=== PATIENT | male | born 1965 | race Caucasian/White ===

== ENCOUNTER 2020-10-01 12:16 | Emergency (ER) | payer BC, SELFPAY ==
[2020-10-01 12:27] VITALS: BP 134/89; PULSE 84; RESP 20; TEMP 37; O2SAT 99
--- NOTE | 2020-10-01 12:29 | ED.BACK ---
HPI - Back Pain/Injury General Chief Complaint: Back Pain/Injury Stated Complaint: back/leg pain Time Seen by Provider: 10/01/20 12:29 Source: patient and RN notes reviewed History of Present Illness HPI Narrative: Patient is a 55-year-old male who presents the urgent care with complaints of left-sided low back pain radiating down to the left leg. Patient states that its been on and off for approximately 1 month and extremely worse yesterday and today. Patient states he does have a history of back surgery with diffuse disc. Reports of chronic back pain intermittently. Denies of any recent trauma, fall, known injury. Patient has been taking ibuprofen as needed for pain. No other acute complaints. No acute distress noted. Patient aware of the plan of care. Some parts of this dictation were generated by voice recognition software and may contain typographical and/or grammatical inaccuracies. Related Data Allergies Allergy/AdvReac Type Severity Reaction Status Date / Time No Known Allergies Allergy Verified 10/01/20 12:32 Review of Systems Review of Systems: Narrative: CONSTITUTIONAL: Denies fever, chills, or sweats. EYES: Denies visual changes, redness, or discharge. ENT: Denies rhinorrhea, congestion, sore throat, or otalgia. CARDIOVASCULAR: Denies chest pain, palpitations, or edema. RESPIRATORY: Denies cough or dyspnea. GASTROINTESTINAL: Denies abdominal pain, nausea, vomiting, or diarrhea. GENITOURINARY: Denies dysuria or hematuria. SKIN: Denies rash or itching. MUSCULOSKELETAL: Reports of left-sided low back pain radiating down the left leg NEUROLOGIC: Denies headache, numbness, or weakness. All other systems reviewed are negative, except as documented in HPI. PMFSH Comments At the time of my signature, I reviewed and agree with the nursing past medical, surgical, social, and family history. There is no relevant family history pertinent to the patient complaint. Exam Narrative: Exam Narrative: GENERAL: This is a well-nourished, well-developed patient, in no apparent distress. HEAD: normocephalic, atraumatic. EYES: PERRL. Sclera clear/white. Vision is grossly intact. EARS: External ears normal NOSE: External nose normal with no obvious nasal discharge, nares without redness, no rhinorrhea. THROAT: Mucous membranes moist NECK: Neck supple SKIN: warm, intact with no suspicious lesions or rash, good texture and turgor. NEURO: awake, alert, and oriented to person, place and time. There were no obvious focal neurologic abnormalities. EXTREMITIES: No clubbing, cyanosis, or edema. No joint tenderness, effusion, or edema noted. BACK: Moderate left-sided lumbar tenderness. Left-sided piriformis tenderness. Positive left SLE Course Vital Signs Vital signs: Vital Signs Temperature 98.6 F 10/01/20 12:27 Pulse Rate 84 10/01/20 12:27 Respiratory Rate 20 10/01/20 12:27 Blood Pressure 134/89 10/01/20 12:27 Pulse Oximetry 99 10/01/20 12:27 Temperature 98.6 F 10/01/20 12:27 Pulse Rate 84 10/01/20 12:27 Respiratory Rate 20 10/01/20 12:27 Blood Pressure 134/89 10/01/20 12:27 Pulse Oximetry 99 10/01/20 12:27 Reviewed MDM - Back Pain/Injury MDM Narrative Medical decision making narrative: Advised the patient to complete the steroid regimen as prescribed. Use ibuprofen as needed for pain. Avoid long periods of sitting. Avoid any strenuous activity or heavy lifting above the head or bending at the waist. Use the Flexeril as needed for muscle relaxer only at bedtime. Do not drive or operate heavy machinery while using the Flexeril. 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 If you develop any increase in pain associated with loss of bowel or bladder or inability to move the left leg?go to the emergency room. Follow-up with your PCP within 2 to 5 days or for worsening symptoms or failure to improve. [place]
== END 2020-10-01 12:42 | disposition home or self-care (01) ==
PROVIDERS: Emergency Provider Nurse Practitioner Family
DX: M54.32 Sciatica, left side (principal)
CPT/HCPCS: 99203; G0463

== ENCOUNTER 2022-06-04 02:21 | Outpatient (CLI) | payer MEDICAID, SELFPAY ==
[2022-05-26 16:01] VITALS: BMI 38.6
--- NOTE | 2022-05-26 16:01 | PC.NURSE ---
Pre Radiology instructions Report to the Outpatient Waiting Room, entrance under the green pavilion located off [facility], at time 0630 on date 06/04/22. Procedure Time: 0830. YOU MAY BE MONITORED AT HOSPITAL FOR UP TO 4 HOURS AFTER YOUR PROCEDURE. One visitor will be allowed to accompany the patient into the hospital. The visitor will be instructed to remain with patient at all times or MAY BE ASKED TO leave the building due to restrictions. We will allow the visitor to come back to the postoperative area when patient is ready. NO children visitors allowed at this time. You and your visitor will be asked to self-screen and do not enter if you have any COVID symptoms. A mask is OPTIONAL within the hospital. Patients are to have no food or drink 6 hours prior to procedure time Driving will be restricted after the procedure, you must have a person to drive you home. Labs will be drawn in preop area and once reviewed, you will be taken to radiology area for procedure. When the procedure is completed, you will be taken to outpatient where you will be monitored for several hours. You may have one visitor in this area. Other than holding anti-coagulants, patient may take other medication(s) as scheduled. Prior to your appointment date patients are instructed to hold anti-coagulants after discussing with ordering provider to stop. If unable to discontinue anti-coagulants please notify radiologist. No aspirin or warfarin (Coumadin) for 7 days prior to the procedure. No clopidogrel (Plavix), ticagrelor (Brilinta), prasugrel (Effient) or dabigatran (Pradaxa) for 5 days prior to the procedure. No rivaroxaban (Xarelto), apixaban (Eliquis), dipyridamole (Aggrenox or Persantine) or cilostazol (Pletal) for 2 days prior to the procedure. Medications to discontinue per physician: ASPIRIN, XARELTO Date to take last dose: 05/27, 06/01 Please leave all valuables, including medications, at home the day of procedure. The hospital will not accept responsibility for valuables. Wear comfortable, loose fitting clothing. Follow any additional instructions given to you from ordering provider. Telephone instructions given to STACEY CERVANTES and asked if any additional questions and then verbalized understanding. Patient advised to call scheduling provider office or registration scheduling [phone] if any additional questions.
[2022-06-04] VITALS (9 sets, daily range): BP systolic 114–149; BP diastolic 67–112; PULSE 67–94; RESP 16–18; TEMP 36.9; O2SAT 94–97
--- NOTE | ~2022-06-04 | XR_ITS ---
EXAMINATION: 1. CT lumbar spine w con 2. XR myelogram spine lumbosacral DATE: 06/04/2022 08:33 INDICATION: Back pain. TECHNIQUE: The procedure including the risks, benefits, and alternatives was discussed with the patie nt. Risks discussed included spinal headache, bleeding, and infection. The patient understood the ris ks and agreed to proceed. A timeout was performed to verify the patient's name, date of , and procedure to be performed. The skin overlying the L3-L4 level was prepped and draped in usual steri le fashion. Subcutaneous 1% lidocaine was used for local anesthesia. A 22 gauge spinal needle was a dvanced under fluoroscopic guidance. 17 mL Omnipaque 180 was injected into the thecal sac. The needle was removed and the entry site was cleaned and dressed. There were no immediate complications. Fluo roscopy exposure time was 1.0 minutes. The total number of images was 14. Computed tomography (CT) of the lumbar spine was performed without intravenous contrast. Automated exposure control and iterativ e reconstruction technique were employed. The dose-length product was 1438.99 mGy-cm. COMPARISON: lumbar spine MRI 07/09/21 FINDINGS: LUMBAR MYELOGRAM: There are 12 pairs of ribs. There are 5 nonrib-bearing lumbar segments. Real-time f luoroscopy demonstrates the needle at the L3-L4 level. There is indentation of the thecal sac at mult iple levels, which will be further described on the post myelogram CT . POST MYELOGRAM LUMBAR SPINE CT: There is 6 degrees dextrocurvature of lumbar spine. There is 3 mm ret rolisthesis of L1 on L2 and L2 on L3 and 2 mm anterolisthesis of L4 on L5. There is mild chronic ante rior wedging of T11 and T12 vertebral bodies. There is a chronic right L3 pars defect. There is resec tion of a portion of the L3 spinous process. There is moderately decreased disc height at T11-T12, mi ldly decreased disc height at T12-L1, L1-L2, and L2-L3, and moderately decreased disc height at L3-L4 with endplate remodeling. The conus medullaris is at T12-L1. The following disc levels are specifica lly discussed: T11-T12: The disc is bulging. There is moderate right facet joint osteoarthritis. There is moderate r ight neural foraminal stenosis. There is mild central canal stenosis. T12-L1: The disc does not extend beyond the endplate margin. There is severe bilateral facet joint os teoarthritis. There is no neural foraminal stenosis. There is no central canal stenosis. L1-L2: The disc does not extend beyond the endplate margin. There is severe bilateral facet joint ost eoarthritis. There is mild right and moderate left neural foraminal stenosis. There is no central can al stenosis. L2-L3: The disc is bulging. There is severe right and moderate left facet joint osteoarthritis. There is mild bilateral neural foraminal stenosis. There is mild central canal stenosis. L3-L4: The disc is bulging. There is severe bilateral facet joint osteoarthritis. There is mild right and moderate left neural foraminal stenosis. There is mild central canal stenosis with posterior dec ompression. There is moderate stenosis of right lateral recess. L4-L5: The disc is bulging. There is severe right and moderate left facet joint osteoarthritis. There is mild bilateral neural foraminal stenosis. There is epidural lipomatosis. There is mild central ca nal stenosis. L5-S1: The disc does not extend beyond the endplate margin. There is severe bilateral facet joint ost eoarthritis. There is no neural foraminal stenosis. There is epidural lipomatosis. There is no centra l canal stenosis. IMPRESSION: 1. Moderate lumbar spondylosis, stable from 07/09/2021. Reviewed, dictated and finalized at location A. NING PROGRAM MANAGER IMPRESSION: 1. Moderate lumbar spondylosis, stable from 1
[2022-06-04 07:27] LABS: Mean Platelet Volume 11.6 fl (7.4-10.4); Platelet Count Result 265 k/mm3 (150-375)
[2022-06-04 07:37] LABS: Prothrombin Time 12.6 Seconds (11.1-14.7)
[2022-06-04] MEDS: ACETAMINOPHEN 500 MG TABLET PO (09:41)
== END 2022-06-04 10:30 | disposition home or self-care (01) ==
PROVIDERS: PCP Physician Assistant; Referring Provider Neurological Surgery; Visit Provider Radiology Diagnostic Radiology
DX: M47.896 Other spondylosis, lumbar region (principal)
CPT/HCPCS: 36415; 62304; 72132; 85049; 85610; A9270; Q9965

== ENCOUNTER 2022-06-28 09:04 | Outpatient (CLI) | payer OTHER, SELFPAY ==
--- NOTE | 2022-06-28 11:00 | NEURO_ITS ---
Impression: # Complains of lower back pain and pain in left lower extremity. Status post lower back surgery. # Normal nerve conduction study including F-waves. # Normal needle/EMG exam, no denervation changes noted. Motor Nerve Conduction Lower Extremities Peroneal Nerve Conduction Velocity (m/sec) Terminal Latency (msec) Response Voltage(mV) Popliteal space-Ankle Ankle Extensor Dig Brevis Popliteal space Ankle Right Left 48 5.9 2 1 Tibial Nerve Conduction Velocity (m/sec) Terminal Latency (msec) Response Voltage(mV) Popliteal space-Ankle Ankle-Extensor Dig Brevis Popliteal space Ankle Right Left 42 4.8 2 1 F-waves Peroneal Nerve (ms) Tibial Nerve (ms) Right Left 56.9 57.6 Sensory Nerve Conduction Lower Extremities Sural Nerve Stimulation Terminal Latency (msec) Ankle Response Voltage (uV) Ankle Response Velocity (m/sec) Right Left 3.5 17 44 Superficial Peroneal Nerve Stimulation Terminal Latency (msec) Ankle Response Voltage (uV) Ankle Response Velocity (m/sec) Right Left 3.8 17 42 Left Right Muscles Examined Fibrillation Fasciculation Scarcity Voltage Duration Left Right Left Right Left Right Left Right Left Right X Ant Tibialis X Gastroc X Fibularis Long X Flex Dig Long X Ext Dig Brev Abd Hallucis Quadriceps Paraspinals MTDD
== END 2022-06-28 09:05 | disposition home or self-care (01) ==
LOC: ANHNEURO 09:06
PROVIDERS: PCP Physician Assistant; Visit Provider Neurological Surgery
DX: R20.2 Paresthesia of skin (principal)
CPT/HCPCS: 95886; 95908

== ENCOUNTER 2022-09-07 08:58 | Outpatient (CLI) | payer OTHER, SELFPAY ==
--- NOTE | 2022-09-07 09:15 | ECG_ITS ---
Measurements Intervals [place] Rate: 93 P: 11 DE: 153 QRS: 36 QRSD: 84 T: 61 QT: 322 QTc: 401 Interpretive Statements SINUS RHYTHM BORDERLINE R WAVE PROGRESSION, ANTERIOR LEADS BORDERLINE ECG NO PREVIOUS ECG AVAILABLE FOR COMPARISON Electronically Signed On 09-07-2022 9:34:45 CDT by [place] Dai D.O.
== END 2022-09-07 08:59 | disposition home or self-care (01) ==
LOC: ANHSURGERY 09:02
PROVIDERS: PCP Physician Assistant; Visit Provider Neurological Surgery
DX: M47.816 Spondylosis without myelopathy or radiculopathy, lumbar region (principal); Z01.818 Encounter for other preprocedural examination; R94.31 Abnormal electrocardiogram [ECG] [EKG]
CPT/HCPCS: 36415; 86850; 86900; 86901; 93005

== ENCOUNTER 2023-03-04 12:58 | Outpatient (CLI) | payer OTHER, SELFPAY ==
[2023-03-04 14:14] LABS: Appearance Urine Clear (Clear); Bilirubin Urine Negative (Negative); Blood Urine Negative (Negative); Color Urine Yellow (Yellow); Glucose Urine UA Negative (Negative); Ketones Urine Negative (Negative); Leukocyte Esterase Ur Negative LEU/UL (Negative); Nitrate Urine Negative (Negative); Protein Urine Negative (Negative); Specific Grav Ur 1.011 (1.001-1.035); Urobilinogen Urine 0.2 mg/dL (<2.0)
[2023-03-04 14:18] LABS: Hematocrit 47.5 % (42.0-52.0); Hemoglobin 15.8 g/dL (14.0-18.0); Mean Corpuscular HGB Conc 33.3 g/dl (32-36); Mean Corpuscular Hemoglobin 31.7 pg (26-34); Mean Corpuscular Volume 95.2 fl (80-100); Mean Platelet Volume 11.5 fl (7.4-10.4); Platelet Count Result 261 k/mm3 (150-375); Red Blood Count 4.99 M/mm3 (4.6-6.20); Red Cell Distribution Width 14.6 % (11.5-14.5); White Blood Count 10.1 K/mm3 (4.5-10.0)
[2023-03-04 14:23] LABS: Add Urine Microscopic? NO
[2023-03-04 14:24] LABS: Prothrombin Time 13.6 Seconds (11.1-14.7)
[2023-03-04 14:25] LABS: Partial Thromboplastin Time 27.1 SECONDS (22.3-36.8)
[2023-03-04 14:26] LABS: Anion Gap 8 mmol/L (8-16); Blood Urea Nitrogen 19 mg/dL (9-20); Calcium 9.6 mg/dL (8.4-10.2); Carbon Dioxide 25 mmol/L (22-30); Chloride 105 mmol/L (98-107); Estimated Glomerular Filt Rate > 60; Glucose 97 mg/dL (65-110); Potassium 4.3 mmol/L (3.4-5.0); Sodium 138 mmol/L (137-145)
== END 2023-03-04 12:59 | disposition home or self-care (01) ==
LOC: ANHSURGERY 13:02
PROVIDERS: PCP Physician Assistant; Visit Provider Neurological Surgery
DX: M47.816 Spondylosis without myelopathy or radiculopathy, lumbar region (principal); Z01.818 Encounter for other preprocedural examination
CPT/HCPCS: 36415; 80048; 81003; 85027; 85610; 85730; 86850; 86900; 86901